=== PATIENT | female | born 1940 | race Caucasian/White ===

== ENCOUNTER 2024-10-09 10:24 | Emergency (ER) | payer MEDICARE, BC ==
[~2024-10-09] VITALS: Ht 167.6 cm; Wt 60.4 kg
[2024-10-09 10:32] VITALS: BP 169/86
[2024-10-09 12:30] VITALS: BP 152/83
[2024-10-09 12:38] VITALS: BP 152/83
[2024-10-09] MEDS ORDERED: DICLOFENAC SODIUM2 % TD (12:43)
== END 2024-10-09 13:08 | disposition home or self-care (01) ==
LOC: ED 10:24
DX: S93.401A Sprain of unspecified ligament of right ankle, initial encounter (principal); I10 Essential (primary) hypertension; G62.9 Polyneuropathy, unspecified; X50.0XXA Overexertion from strenuous movement or load, initial encounter; Y92.007 Garden or yard of unspecified non-institutional (private) residence as the place of occurrence of the external cause